=== PATIENT | female | born 1970 | race Caucasian/White ===

== ENCOUNTER 2018-01-22 05:43 | Inpatient (IN) | END 2018-01-29 16:00 | disposition home or self-care (01) | DRG 445 ==

== ENCOUNTER 2019-02-19 12:12 | Day surgery (SDC) | payer OTHER ==
[2019-02-18 15:14] VITALS: Ht 157.5 cm; Wt 73.0 kg
[~2019-02-19] VITALS: Ht 157.5 cm; Wt 73.0 kg
[2019-02-19] VITALS (17 sets, daily range): BP systolic 84–120; BP diastolic 48–68; PULSE 71–99; RESP 15–21
[~2019-02-19 12:12] MED LIST: HYDR-4011 PO; SEVOFLURANE 15 MIN ONE
[2019-02-19] MEDS ORDERED: LACTATED RINGER'S 500 ML IV SCH (14:00)
--- NOTE | 2019-02-19 14:07 | PREAC ---
Date/Time of Note Date/Time of Note DATE: 02/19/19 TIME: 14:06 Anesthesia Eval and Record Evaluation Time Pre-Procedure Interview DATE: 02/19/19 TIME: 14:06 Age 48 Sex female NPO: 8 hrs Preoperative diagnosis S/P Stent Placement Planned procedure ERCP and stent removal Past Medical History Past Medical History: Includes Heme: Anemia Surgery & Anesthesia Issues No known issue Meds Anticoagulation: No Beta Ant within 24 hr: No Reason Beta Ant not given: Pt. not on B-Ant Discontinued Scripts Hydrocodone/Acetaminophen ([place] 5-325 Tablet) 1 Each Tablet, 1 EACH PO Q4 for PAIN, #30 TAB Prov:KARTHIK BROWN 01/29/18 Current Medications Lactated Ringer's 500 ml @ 0 mls/hr Q0M IV ; Start 02/19/19 at 14:00 Meds reviewed: Yes Allergies Coded Allergies: No Known Allergy (Unverified , 02/19/19) Allergies Reviewed: Yes Labs/Studies Labs Reviewed: Reviewed by anesthesiologist Result Diagram: 02/19/19 1335 Laboratory Tests 02/19/19 13:35 test: Negative Studies: ECG (n/a), CXR (n/a) Pre-procedure Exam Last vitals Vital Signs Date Temp Pulse Resp B/P (MAP) Pulse Ox O2 O2 Flow FiO2 Time Delivery Rate 02/19/19 98.4 71 16 104/60 99 Room Air 13:42 (75) Airway: Adequate mouth opening, Adequate thyromental dist Mallampati: Mallampati II Teeth: Normal Lung: Normal Heart: Normal ASA Physical Status ASA physical status: 2 Emergency: None Planned Anesthetic General/MAC: ETT Planned Pain Management Parenteral pain med Pre-operative Attestations Prior to commencing anesthesia and surgery, the patient was re-evaluated, there was verification of: *The patient's identity *The results of appropriate recent lab work and preoperative vital signs *The above evaluation not changing prior to induction *Anesthetic plan, risk benefits, alternative and complications discussed with patient/family; questions answered; patient/family understands, accepts and wishes to proceed. AFSANEH WHITE MD Feb 19, 2019 14:07
[2019-02-19] MEDS ORDERED: PROPOFOL 20 ML ONE (14:09)
[2019-02-19] MEDS ORDERED: CEFAZOLIN 1 GM INJ ONE (14:09)
[2019-02-19] MEDS ORDERED: ROCURONIUM 50 MG INJ ONE (14:09)
[2019-02-19] MEDS ORDERED: MIDAZOLAM 1 MG/ML 2 ML INJ ONE (14:10)
[2019-02-19] MEDS ORDERED: ONDANSETRON 4 MG INJ IV PRN (14:30)
[2019-02-19] MEDS ORDERED: EPHEDrine SULFATE 50 MG/5 ML SYG IV PRN (14:30)
[2019-02-19] MEDS ORDERED: LABETALOL HCL 20MG INJ IV PRN (14:30)
[2019-02-19] MEDS ORDERED: HYDROmorphONE 1 MG/5 ML IV SYRINGE IV PRN ×2 (14:30)
[2019-02-19] MEDS ORDERED: FENTAnyl 50 MCG/ML VIAL IV PRN ×2 (14:30)
[2019-02-19] MEDS ORDERED: KETOROLAC 30 MG INJ ONE (14:40)
[2019-02-19] MEDS ORDERED: DEXAMETHASONE 4 MG/ML 5 ML INJ ONE (14:40)
[2019-02-19] MEDS ORDERED: METOCLOPRAMIDE 10 MG INJ ONE (14:40)
[2019-02-19] MEDS ORDERED: ONDANSETRON 4 MG INJ ONE (14:40)
[2019-02-19] MEDS ORDERED: SUGAMMADEX SODIUM 200 MG/2 ML VIAL IV ONE (14:42)
--- NOTE | 2019-02-19 14:58 | PAC ---
Date/Time of Note Date/Time of Note DATE: 02/19/19 TIME: 14:57 Post-Anesthesia Notes Post-Anesthesia Note Last documented vital signs Vital Signs Date Temp Pulse Resp B/P (MAP) Pulse Ox O2 O2 Flow FiO2 Time Delivery Rate 02/19/19 98.4 71 16 104/60 99 Room Air 15:02 (75) Activity: WNL Respiratory function: WNL Cardiovascular function: WNL Mental status: Baseline Pain reasonably controlled: Yes Hydration appropriate: Yes Nausea/Vomiting absent: Yes AFSANEH WHITE MD Feb 19, 2019 14:58
--- NOTE | 2019-02-19 15:05 | OPR ---
Date/Time of Note Date/Time of Note DATE: 02/19/19 TIME: 15:02 Operative Report Preoperative Diagnosis cbd stent ?? stones Postoperative Diagnosis cbd stoes cbd stent Operation/Procedure Performed ercp removel of cbd stent and stone Surgeon see signature line [employer] none Anesthesia Type: general Anesthesiologist: AFSANEH WHITE MD Estimated Blood Loss: none Transfusion none Specimen none Grafts/Implants none Tubes/Drains none Complications none Pt Condition Post Procedure: stable Disposition: other Indications removel of cbd stent and stone Procedure Description ercp done cbd stent removed cbd stones removed KRISTINE VARGAS MD Feb 19, 2019 15:05
--- NOTE | 2019-02-20 00:52 | GILP ---
DATE OF PROCEDURE: 02/19/2019 PROCEDURE: ERCP, removal of CBD stent and removal of CBD stones. PREOPERATIVE DIAGNOSES: The patient has a history of ERCP done in the past and CBD stent was placed after removing the CBD stones. At this time, procedure is performed to remove the CBD stent and also remove the stones if any stones found. POSTOPERATIVE DIAGNOSES: The patient has a history of ERCP done in the past and CBD stent was placed after removing the CBD stones. At this time, procedure is performed to remove the CBD stent and als o remove the stones if any stones found. DESCRIPTION OF PROCEDURE: After the informed written consent was obtained, the patient was intubated by anesthesiologist, Dr. St while the patient was in prone position. Olympus video site with d uodenoscope was inserted into the oropharynx, then into the esophagus, subsequently into the stomach and then into the duodenum. The duodenum showed evidence of a CBD stent in place. At this time, a s nare was used and the stent was grabbed with the snare and then brought out through the biopsy channe l of the scope. Subsequently, a stone extraction balloon was inserted into the common bile duct with the wire in place. Contrast was injected. The duct appeared to be mildly dilated; however, there i s no filling defects noted, although at this time balloon sweeping was performed, which resulted in r emoving both a 3 mm stone and thick bile also was extracted from the common bile duct. At the end of multiple sweeping, no more filling defects noted and the scope at this time was withdrawn and the pr ocedure was terminated. PLAN: Recommend to follow the patient closely as an outpatient. Dictated By: KRISTINE GORDILLO/NTS Conf#: [id number] DID#: [id number] CC: KRISTINE VARGAS MD;*EndCC*
== END 2019-02-19 16:43 | disposition home or self-care (01) ==
LOC: GIL 12:12 → SDS 12:12 → GIL 16:43
PROVIDERS: ATTEND Internal Medicine Gastroenterology
DX: K80.50 Calculus of bile duct without cholangitis or cholecystitis without obstruction (principal)
CPT/HCPCS: 43264; 74330; 80048; 84703; 85025; 85610; 85730; J0690; J1100; J1885; J2250; J2405; J2765; J3010; Z7512; Z7610

== ENCOUNTER 2019-05-23 16:54 | Emergency (ER) | payer OTHER ==
[~2019-05-23] VITALS: Wt 70.0 kg
[2019-05-23] MEDS ORDERED: SODIUM CHLORIDE 0.9% 1L BAG IV* STA (18:53)
[2019-05-23] MEDS ORDERED: CEFTRIAXONE 1 GM/50 ML (PMX) 50 ML IVPB STA (18:53)
[2019-05-23] MEDS ORDERED: ACETAMINOPHEN 325 MG TAB PO STA (18:53)
[2019-05-23] MEDS ORDERED: ONDA4TAB14 PO (23:40)
[2019-05-23] MEDS ORDERED: IBUP-1542 PO (23:40)
--- NOTE | 2019-05-23 23:42 | ERD ---
ER Documentation Chief Complaint Chief Complaint bilateral flank pain and dysuria for 2 days. with fevers and body aches. HPI Patient is a 48-year-old female with no medical problems who presents with abdominal pain. The patient has back pain and fevers as well. The symptoms started yesterday. She thought it might be the flu. Her symptoms come and go. She had pain with urination and urinary hesitancy. Upon review of old medical records this is the patient's third visit to the ER since 2018. She does have a primary doctor. ROS All systems reviewed and are negative except as per history of present illness. Medications Home Meds Active Scripts Ondansetron (Ondansetron Odt) 4 Mg Tab.rapdis, 4 MG PO Q6H PRN for NAUSEA AND/OR VOMITING, #10 TAB Prov:DONN IGNACIO MD 05/23/19 Ibuprofen* (Motrin*) 600 Mg Tab, 600 MG PO Q6H PRN for PAIN AND OR ELEVATED TEMP, #30 TAB Prov:DONN IGNACIO MD 05/23/19 Allergies Allergies: Coded Allergies: No Known Allergy (Unverified , 02/19/19) PMhx/Soc Medical and Surgical Hx: pt denies Medical Hx Anesthesia Reaction: No Hx Neurological Disorder: No Hx Respiratory Disorders: No Hx Cardiac Disorders: No Hx Psychiatric Problems: No Hx Miscellaneous Medical Probl: No Hx Alcohol Use: No Hx Substance Use: No Hx Tobacco Use: No Smoking Status: Never smoker FmHx Family History: No diabetes Physical Exam Vitals Vital Signs Date Temp Pulse Resp B/P (MAP) Pulse Ox O2 O2 Flow FiO2 Time Delivery Rate 05/23/19 98.8 84 16 115/63 98 Room Air 20:21 (80) 05/23/19 Nasal 19:00 Cannula 05/23/19 101.8 79 18 100/55 99 Room Air 19:00 (70) 05/23/19 101.8 109 18 168/69 99 16:55 (102) Physical Exam Const: Mild distress Head: Atraumatic Eyes: Normal Conjunctiva ENT: Normal External Ears, Nose and Mouth. Neck: Full range of motion. No meningismus. Resp: Clear to auscultation bilaterally Cardio: Tachycardic rate without murmur Abd: Soft, diffuse tenderness to palpation without rebound or guarding Skin: No petechiae or rashes Back: No midline or flank tenderness Ext: No cyanosis, or edema Neur: Awake and alert Psych: Normal Mood and Affect Result Diagram: 05/23/19190205/23/191902 Results 24 hrs Laboratory Tests Test 05/23/19 19:03 05/23/19 19:05 05/23/19 21:30 White Blood Count 14.8 10^3/ul Red Blood Count 3.94 10^6/ul Hemoglobin 10.2 g/dl Hematocrit 32.0 % Mean Corpuscular Volume 81.2 fl Mean Corpuscular Hemoglobin 25.9 pg Mean Corpuscular 31.9 g/dl Hemoglobin Concent Red Cell Distribution Width 14.6 % Platelet Count 303 10^3/UL Mean Platelet Volume 10.8 fl Immature Granulocytes % 0.400 % Neutrophils % 85.4 % Lymphocytes % 9.0 % Monocytes % 4.5 % Eosinophils % 0.5 % Basophils % 0.2 % Nucleated Red Blood Cells % 0.0 /100WBC Immature Granulocytes # 0.060 10^3/ul Neutrophils # 12.6 10^3/ul Lymphocytes # 1.3 10^3/ul Monocytes # 0.7 10^3/ul Eosinophils # 0.1 10^3/ul Basophils # 0.0 10^3/ul Nucleated Red Blood Cells # 0.0 10^3/ul Prothrombin Time 12.7 Sec Prothrombin Time Ratio 1.0 INR International 0.94 Normalized Ratio Activated Partial Thromboplast 24.7 Sec Time Urine Color YELLOW Urine Clarity CLEAR Urine pH 5.0 Urine Specific [place] 1.019 Urine Ketones 1+ mg/dL Urine Nitrite NEGATIVE mg/dL Urine Bilirubin NEGATIVE mg/dL Urine Urobilinogen 1+ mg/dL Urine Leukocyte Esterase NEGATIVE Reece/ul Urine Microscopic RBC 158 /HPF Urine Microscopic WBC 4 /HPF Urine Mucus FEW /HPF Urine Hemoglobin 3+ mg/dL Urine Glucose NEGATIVE mg/dL Urine Total Protein NEGATIVE mg/dl Urine Test NEGATIVE Sodium Level 139 mmol/L Potassium Level 4.1 mmol/L Chloride Level 104 mmol/L Carbon Dioxide Level 23 mmol/L Anion Gap 12 Blood Urea Nitrogen 12 mg/dl Creatinine 0.67 mg/dl Est Glomerular Filtrat > 60 mL/min Rate mL/min Glucose Level 98 mg/dl Calcium Level 9.0 mg/dl Total Bilirubin 1.1 mg/dl Direct Bilirubin 0.00 mg/dl Indirect Bilirubin 1.1 mg/dl Aspartate Amino Transf (AST/SGOT) 23 IU/L Alanine 11 IU/L Aminotransferase (ALT/SGPT) Alkaline Phosphatase 58 IU/L Troponin I < 0.012 ng/ml Total Protein 8.6 g/dl Albumin 4.7 g/dl Globulin 3.90 g/dl Albumin/Globulin Ratio 1.20 Lipase 78 U/L POC Venous Lactate 0.8 mmol/L POC Beta HCG, Qualitative NEGATIVE Current Medications Medications Dose Sig/Marlene Start Time Status Last (Trade) Ordered Route PRN Stop Time Admin Dose Reason Admin Sodium 2,100 ml BOLUS OVER 2 05/23/19 DC 05/23/19 Chloride HOURS STAT 18:53 19:11 (NS) IV* 05/23/19 18:54 650 mg ONCE STAT 05/23/19 DC 05/23/19 Acetaminophen PO 18:53 19:10 (Tylenol 05/23/19 18:54 Tab) Ceftriaxone 50 ml @ ONCE STAT 05/23/19 DC 05/23/19 Sodium 100 mls/hr IVPB 18:53 19:10 05/23/19 19:22 Procedures/MDM EKG read by me: Rate/Rhythm: Regular rate and rhythm at a rate of 87 Intervals: Normal Impression: No evidence of ischemia or arrhythmia CT scan negative for surgical process per radiology. Patient is a 48-year-old female with no medical problems who presents with abdominal pain and fever. Patient had a full septic work-up but no sepsis or source of infection was found. I doubt pneumonia, cystitis, appendicitis, cholecystitis, pancreatitis, or bowel obstruction. I believe outpatient management is appropriate and I believe patient likely has a viral syndrome. The patient will be given a prescription for ibuprofen and Zofran. She can return for any worsening symptoms. I believe outpatient management is appropriate. Departure Diagnosis: Primary Impression: Fever Fever type: unspecified Qualified Codes: R50.9 - Fever, unspecified Additional Impression: Abdominal pain Abdominal location: generalized Qualified Codes: R10.84 - Generalized abdominal pain Condition: Fair Patient Instructions: Abdominal Pain Referrals: Your doctor Additional Instructions: Llame al doctor MAANA y cory hong GANESH PARA DENTRO DE 1-2 MAHONEY.Dgale a la secretaria que nosotros le instruimos hacer esta ganesh.Avise o llame si kim condicin se empeora antes de la ganesh. Regresa aqui si peor o no mejor. DONN IGNACIO MD May 23, 2019 23:42
[2019-05-23 23:46] VITALS: BP 118/70; PULSE 80; RESP 16
== END 2019-05-23 23:56 | disposition home or self-care (01) ==
LOC: E/R 16:54
DX: R50.9 Fever, unspecified (principal); R10.84 Generalized abdominal pain
CPT/HCPCS: 36415; 71045; 74176; 80053; 81001; 81025; 83605; 83690; 84484; 84703; 85025; 85610; 85730; 87040; 87086; 93005; 96374; J0696; J7030; Z7502; Z7610